=== PATIENT | female | born 1970 | race African-American/Black ===

== ENCOUNTER 2017-06-20 20:43 | Inpatient (IN) | payer MEDICAID ==
[~2017-06-20] VITALS: Ht 149.9 cm; Wt 41.8 kg
[2017-06-20 21:52] LABS: BASOPHILS 0 % (0-2); EOSINOPHILS 0.1 % (0-7); HEMATOCRIT 34.7 % (36.0-48.0); HEMOGLOBIN 11.8 g/dL (12-16); IMMATURE GRANULOCYTES 0.2 % (0-5); LYMPHOCYTES 7.8 % (15-50); MEAN PLATELET VOLUME 10.1 fL (7.4-10.4); MONOCYTES 9.2 % (2-11); NEUTROPHILS 82.7 % (40-80); PLATELET COUNT 209 10x3/uL (130-400); RBC 3.37 10x6/uL (4.00-5.40); RDW 13.4 % (11.5-14.5); WBC 13.4 10x3/uL (4.8-10.8)
[2017-06-20 22:01] LABS: ALBUMIN 3.8 g/dL (3.4-5.0); ANION GAP 16.7 mmol/L (8-16); BILIRUBIN - TOTAL 0.52 mg/dL (0.2-1.3); CARBON DIOXIDE 27.9 mmol/L (21.0-32.0); CREATININE - SERUM 2.2 mg/dL (0.6-1.3); POTASSIUM - SERUM 3.6 mmol/L (3.5-5.1); PROTEIN - SERUM 8.1 g/dL (6.4-8.2)
[2017-06-20 22:06] LABS: MAGNESIUM - SERUM 0.8 mg/dL (1.8-2.4)
[2017-06-20 23:31] LABS: APPEARANCE CLOUDY (CLEAR); BILIRUBIN NEGATIVE (NEGATIVE); COLOR YELLOW (YELLOW); GLUCOSE NEGATIVE (NEGATIVE); KETONE SMALL mg/dL (NEGATIVE); NITRITE NEGATIVE (NEGATIVE); PROTEIN 1+ mg/dL (NEGATIVE); SPECIFIC GRAVITY 1.025 (1.005-1.020); UDS - AMPHET NEGATIVE QUAL (NEGATIVE); UDS - BARB NEGATIVE QUAL (NEGATIVE); UDS - BENZO POSITIVE QUAL (NEGATIVE); UDS - COCAINE NEGATIVE QUAL (NEGATIVE); UDS - OPIATE NEGATIVE QUAL (NEGATIVE); UDS - PCP NEGATIVE QUAL (NEGATIVE); UDS - THC POSITIVE QUAL (NEGATIVE); UROBILINOGEN NORMAL (NORMAL)
[2017-06-20 23:33] LABS: BACTERIA MODERATE /hpf (NONE SEEN); EPITHELIAL CELLS 0-5 /hpf (0-5); RED CELLS - URINE 0-5 /hpf (0-5)
[2017-06-21 06:48] LABS: BASOPHILS 0.1 % (0-2); EOSINOPHILS 0.1 % (0-7); HEMATOCRIT 35.7 % (36.0-48.0); HEMOGLOBIN 12.3 g/dL (12-16); IMMATURE GRANULOCYTES 0.5 % (0-5); LYMPHOCYTES 7.9 % (15-50); MCHC 34.5 g/dL (31.0-37.0); MCV 101.7 fL (80.0-100.0); MEAN PLATELET VOLUME 10.6 fL (7.4-10.4); NEUTROPHILS 78.4 % (40-80); PLATELET COUNT 170 10x3/uL (130-400); RBC 3.51 10x6/uL (4.00-5.40); RDW 13.5 % (11.5-14.5); WBC 15.5 10x3/uL (4.8-10.8)
[2017-06-21 06:53] LABS: ANION GAP 19.2 mmol/L (8-16); CALCIUM 9.1 mg/dL (8.5-10.1); CARBON DIOXIDE 22.7 mmol/L (21.0-32.0); POTASSIUM - SERUM 3.9 mmol/L (3.5-5.1)
[2017-06-21 06:57] LABS: CREATININE - SERUM 1.6 mg/dL (0.6-1.3); MAGNESIUM - SERUM 2.6 mg/dL (1.8-2.4)
[2017-06-21] MEDS ORDERED: ZESTRIL20 MG PO (18:15)
[2017-06-21] MEDS ORDERED: NORVASC10 MG PO (18:16)
[2017-06-21 18:29] VITALS: BP 148/86; BMI 16.2
[2017-06-21 21:47] VITALS: BP 148/103
[2017-06-22 01:54] VITALS: BP 144/102
[2017-06-22 05:28] LABS: BASOPHILS 0.1 % (0-2); EOSINOPHILS 0 % (0-7); HEMATOCRIT 34.2 % (36.0-48.0); HEMOGLOBIN 11.6 g/dL (12-16); IMMATURE GRANULOCYTES 0.2 % (0-5); LYMPHOCYTES 11.1 % (15-50); MCH 34.6 pg (26.0-34.0); MCHC 33.9 g/dL (31.0-37.0); MCV 102.1 fL (80.0-100.0); MEAN PLATELET VOLUME 10.4 fL (7.4-10.4); MONOCYTES 13.1 % (2-11); NEUTROPHILS 75.5 % (40-80); PLATELET COUNT 204 10x3/uL (130-400); RBC 3.35 10x6/uL (4.00-5.40); RDW 13.5 % (11.5-14.5)
[2017-06-22 05:29] LABS: WBC 9.9 10x3/uL (4.8-10.8)
[2017-06-22 05:53] VITALS: BP 136/100
[2017-06-22 06:10] LABS: ANION GAP 17.6 mmol/L (8-16); CALCIUM 9.1 mg/dL (8.5-10.1); CREATININE - SERUM 1.3 mg/dL (0.6-1.3)
[2017-06-22 06:25] LABS: MAGNESIUM - SERUM 1.3 mg/dL (1.8-2.4); POTASSIUM - SERUM 2.6 mmol/L (3.5-5.1)
[2017-06-22 08:11] VITALS: BP 140/96
[2017-06-22 11:44] VITALS: BP 118/64
[2017-06-22 13:48] VITALS: Ht 149.9 cm; Wt 41.8 kg
[2017-06-22 15:24] VITALS: BP 128/65
[2017-06-22 19:00] VITALS: BP 161/116
[2017-06-23 04:52] VITALS: BP 147/99
[2017-06-23 05:43] LABS: BASOPHILS 0.1 % (0-2); EOSINOPHILS 0.8 % (0-7); HEMATOCRIT 32.5 % (36.0-48.0); HEMOGLOBIN 11.2 g/dL (12-16); IMMATURE GRANULOCYTES 0.4 % (0-5); LYMPHOCYTES 18.1 % (15-50); MCH 34.6 pg (26.0-34.0); MCHC 34.5 g/dL (31.0-37.0); MCV 100.3 fL (80.0-100.0); MEAN PLATELET VOLUME 10.1 fL (7.4-10.4); MONOCYTES 14.1 % (2-11); NEUTROPHILS 66.5 % (40-80); PLATELET COUNT 186 10x3/uL (130-400); RBC 3.24 10x6/uL (4.00-5.40); RDW 13.2 % (11.5-14.5); WBC 8.5 10x3/uL (4.8-10.8)
[2017-06-23 05:50] LABS: ANION GAP 17.2 mmol/L (8-16); CALCIUM 8.6 mg/dL (8.5-10.1); CARBON DIOXIDE 22.8 mmol/L (21.0-32.0)
[2017-06-23 06:33] LABS: CREATININE - SERUM 0.9 mg/dL (0.6-1.3); MAGNESIUM - SERUM 0.8 mg/dL (1.8-2.4); PHOSPHOROUS 2.7 mg/dL (2.5-4.9)
[2017-06-23 08:19] VITALS: BP 156/110
[2017-06-23 11:32] VITALS: BP 149/96
[2017-06-23 15:44] VITALS: BP 151/78
[2017-06-23 20:53] VITALS: BP 169/116
[2017-06-24 06:08] VITALS: BP 115/116
[2017-06-24 06:08] LABS: BASOPHILS 0.2 % (0-2); EOSINOPHILS 1.4 % (0-7); HEMATOCRIT 32.6 % (36.0-48.0); HEMOGLOBIN 11.4 g/dL (12-16); IMMATURE GRANULOCYTES 0.5 % (0-5); LYMPHOCYTES 16.7 % (15-50); MCH 34.9 pg (26.0-34.0); MCV 99.7 fL (80.0-100.0); MEAN PLATELET VOLUME 9.4 fL (7.4-10.4); MONOCYTES 15.8 % (2-11); NEUTROPHILS 65.4 % (40-80); PLATELET COUNT 206 10x3/uL (130-400); RBC 3.27 10x6/uL (4.00-5.40); WBC 8.4 10x3/uL (4.8-10.8)
[2017-06-24 06:34] LABS: CALCIUM 9.1 mg/dL (8.5-10.1); CHLORIDE - SERUM 96 mmol/L (98-107); CREATININE - SERUM 0.7 mg/dL (0.6-1.3); GLUCOSE 81 mg/dL (74-106); PHOSPHOROUS 3.2 mg/dL (2.5-4.9); SODIUM 127 mmol/L (136-145); eGFR NON AFRICAN AMERICAN > 90 mL/min (90-120)
[2017-06-24 06:36] LABS: CALC OSMOLALITY 252 mosm/kg (275-300); MAGNESIUM - SERUM 1.4 mg/dL (1.8-2.4); UREA NITROGEN 10 mg/dL (7-18)
[2017-06-24 06:37] LABS: POTASSIUM - SERUM 2.9 mmol/L (3.5-5.1)
[2017-06-24 07:51] VITALS: BP 148/110
[2017-06-24 15:30] VITALS: BP 144/78
[2017-06-24 19:00] VITALS: BP 143/120
[2017-06-25 04:00] VITALS: BP 120/51
[2017-06-25 07:00] LABS: BASOPHILS 0.3 % (0-2); EOSINOPHILS 1.3 % (0-7); HEMATOCRIT 32.9 % (36.0-48.0); HEMOGLOBIN 11.3 g/dL (12-16); IMMATURE GRANULOCYTES 1.3 % (0-5); LYMPHOCYTES 23.3 % (15-50); MCH 34.2 pg (26.0-34.0); MCHC 34.3 g/dL (31.0-37.0); MCV 99.7 fL (80.0-100.0); MEAN PLATELET VOLUME 9.5 fL (7.4-10.4); MONOCYTES 13.2 % (2-11); NEUTROPHILS 60.6 % (40-80); PLATELET COUNT 222 10x3/uL (130-400); RDW 13.2 % (11.5-14.5)
[2017-06-25 07:21] LABS: ANION GAP 16.1 mmol/L (8-16); CALCIUM 9.2 mg/dL (8.5-10.1); CARBON DIOXIDE 22.4 mmol/L (21.0-32.0); MAGNESIUM - SERUM 1.2 mg/dL (1.8-2.4); PHOSPHOROUS 3.6 mg/dL (2.5-4.9); POTASSIUM - SERUM 3.5 mmol/L (3.5-5.1)
[2017-06-25 07:24] LABS: CREATININE - SERUM 0.9 mg/dL (0.6-1.3)
[2017-06-25 09:50] VITALS: BP 114/107
[2017-06-25 12:15] VITALS: BP 134/98
[2017-06-25 15:58] VITALS: BP 129/93
[2017-06-25 20:40] VITALS: BP 142/100
[2017-06-26 00:15] VITALS: BP 150/104
[2017-06-26 05:09] VITALS: BP 150/104
[2017-06-26 07:41] VITALS: BP 135/88
[2017-06-26 07:53] LABS: BASOPHILS 1.2 % (0-2); EOSINOPHILS 1.3 % (0-7); HEMATOCRIT 30.7 % (36.0-48.0); HEMOGLOBIN 10.6 g/dL (12-16); LYMPHOCYTES 27.5 % (15-50); MCH 34.1 pg (26.0-34.0); MCHC 34.5 g/dL (31.0-37.0); MCV 98.7 fL (80.0-100.0); MEAN PLATELET VOLUME 8.8 fL (7.4-10.4); MONOCYTES 15.6 % (2-11); NEUTROPHILS 52.4 % (40-80); PLATELET COUNT 212 10x3/uL (130-400); RBC 3.11 10x6/uL (4.00-5.40); RDW 13.2 % (11.5-14.5); WBC 8.6 10x3/uL (4.8-10.8)
[2017-06-26 08:11] LABS: ANION GAP 12.9 mmol/L (8-16); CALCIUM 8.7 mg/dL (8.5-10.1); CARBON DIOXIDE 24.7 mmol/L (21.0-32.0); PHOSPHOROUS 4.1 mg/dL (2.5-4.9)
[2017-06-26 08:18] LABS: POTASSIUM - SERUM 2.6 mmol/L (3.5-5.1)
[2017-06-26 11:37] VITALS: BP 124/91
[2017-06-26 15:49] VITALS: BP 136/91
[2017-06-26 17:40] LABS: MAGNESIUM - SERUM 2.7 mg/dL (1.8-2.4); POTASSIUM - SERUM 3.3 mmol/L (3.5-5.1)
[2017-06-26 20:58] VITALS: BP 128/83
[2017-06-27 01:12] VITALS: BP 111/71
[2017-06-27 05:58] VITALS: BP 126/90
[2017-06-27 06:50] LABS: CALCIUM 8.8 mg/dL (8.5-10.1); CREATININE - SERUM 1.1 mg/dL (0.6-1.3)
[2017-06-27 06:51] LABS: MAGNESIUM - SERUM 1.6 mg/dL (1.8-2.4)
[2017-06-27 08:01] VITALS: BP 119/86
[2017-06-27 11:27] VITALS: BP 122/82
[2017-06-27 16:10] VITALS: BP 127/88
[2017-06-27 19:00] VITALS: BP 144/98
[2017-06-27 20:05] LABS: MAGNESIUM - SERUM 1.2 mg/dL (1.8-2.4)
[2017-06-27 20:06] LABS: POTASSIUM - SERUM 3.6 mmol/L (3.5-5.1)
[2017-06-28] VITALS: BP 119/78
[2017-06-28 04:00] VITALS: BP 124/84
[2017-06-28 07:28] LABS: HEMATOCRIT 28.4 % (36.0-48.0); LYMPHOCYTES 35.2 % (15-50); MCH 34.7 pg (26.0-34.0); MCHC 35.2 g/dL (31.0-37.0); MCV 98.6 fL (80.0-100.0); MEAN PLATELET VOLUME 8.2 fL (7.4-10.4); NEUTROPHILS 49.6 % (40-80); RBC 2.88 10x6/uL (4.00-5.40); RDW 13.3 % (11.5-14.5); WBC 8.3 10x3/uL (4.8-10.8)
[2017-06-28 07:31] LABS: PLATELET COUNT 274 10x3/uL (130-400)
[2017-06-28 07:34] LABS: ANION GAP 11.9 mmol/L (8-16); CALCIUM 9.2 mg/dL (8.5-10.1); CARBON DIOXIDE 27.6 mmol/L (21.0-32.0); MAGNESIUM - SERUM 1.4 mg/dL (1.8-2.4); POTASSIUM - SERUM 3.5 mmol/L (3.5-5.1)
[2017-06-28 09:25] VITALS: BP 139/103
[2017-06-28 11:46] VITALS: BP 140/89
[2017-06-28] MEDS ORDERED: THIAMINE HCL50 MG PO (16:06)
[2017-06-28] MEDS ORDERED: THERAGRAN M [BK1 TAB PO (16:06)
[2017-06-28 16:11] VITALS: BP 143/80
== END 2017-06-28 18:57 | disposition home or self-care (01) | DRG 896 ==
LOC: D.ER 20:43 → D.SDCHOLD 23:33 → D.M2 23:33
PROVIDERS: Emergency Medicine; Family Medicine; Internal Medicine Nephrology
DX: F10.239 Alcohol dependence with withdrawal, unspecified (principal); J69.0 Pneumonitis due to inhalation of food and vomit; G92 Toxic encephalopathy; N39.0 Urinary tract infection, site not specified; N17.9 Acute kidney failure, unspecified; Y90.0 Blood alcohol level of less than 20 mg/100 ml; E83.42 Hypomagnesemia; Z72.0 Tobacco use; D53.9 Nutritional anemia, unspecified; F10.229 Alcohol dependence with intoxication, unspecified; E87.6 Hypokalemia